=== PATIENT | female | born 1990 | race Hispanic/Latino ===

== ENCOUNTER 2017-11-28 19:56 | Day surgery (SDC) | payer OTHER ==
[2017-11-29 01:08] VITALS: BP 117/55; TEMP 98.3
--- NOTE | 2017-11-29 07:42 | PRG ---
DATE OF SERVICE: 11/28/2017 PRIMARY OB: Dr. Jorge Holt CHIEF COMPLAINT: Fall and abdominal pains. HISTORY OF PRESENT ILLNESS: The patient is a 27-year-old female with an intrauterine at 36 weeks and 2 days who presents to Labor and Delivery after experiencing a jarring fall onto her bottom. The patient reports that she slipped and fell sharply on her bottom and since then has been having a lot of abdominal and pelvic pain. The patient reports uterine contractions. She denies va ginal bleeding or leakage of fluid. She denies hitting her abdomen directly. She reports move ment. She denies any complications with this thus far. The patient denies fever, headache , chest pain, shortness of breath, nausea, vomiting, diarrhea, constipation. She denies rashes, hip problems and denies knee problems, muscle weakness, vaginal bleeding, leakage of fluid, urinary urgen cy or frequency. The patient reports pelvic pains down in her lower pelvis that are sharp and worse with movement and activity. She has difficulty turning in bed and lifting her legs, particularly the left side. PAST MEDICAL HISTORY: Negative. PAST SURGICAL HISTORY: Negative. ALLERGIES: No known drug allergies. MEDICATIONS: vitamins. SOCIAL HISTORY: Denies drug, alcohol or tobacco use. The patient continues to work outside the home and was planning on entering family medical leave next week. OBSTETRIC HISTORY: The patient has had 4 term vaginal deliveries. OB LABS: Unavailable. REVIEW OF SYSTEMS: Per HPI. PHYSICAL EXAMINATION: VITAL SIGNS: Blood pressure 128/84, heart rate of 72, respiratory rate of 16, satting 99% on room ai r, temperature 98.3. GENERAL: She appears to be in no acute distress. She is alert and oriented, cooperative and pleasan t to interact with. HEENT: Normocephalic, atraumatic. LUNGS: Clear to auscultation bilaterally. HEART: Regular rate and rhythm. ABDOMEN: Soft. It is tender to palpation particularly with deviation of the uterus to the left and right. Left is tenderness and pain is worse in the right. EXTREMITIES: Nontender, nonedematous. CERVICAL EXAM: 120 and -2 station. heart tracing performed for abdominal pain and fall. Baseline is noted to be in the 130s with moderate long-term variability, positive accelerations, no decelerations. Tocometer on first arrival , the patient was having contractions about every 2 minutes and then every 5-6 minutes. After about 5-6 hours the patient is now not having any contractions. She reports that her pain is improved, chastity t she is able to turn in bed without too much discomfort. Fetus continues to look reactive and reass uring with baseline in the 120s, moderate long-term variability, positive accelerations, no decelerat ions. ASSESSMENT AND PLAN: The patient is a 27-year-old female with an intrauterine at 36 weeks and 2 days after a fall onto her bottom. Her contractions have now dissipated and the patient is overall feeling better. Fetus is reassuring and reactive. The patient will be discharged to home and has instructions to follow up with her primary OB, Dr. Jorge Holt in the next few days. The jade hardwick has been asked to call his office today to make an appointment.
== END 2017-11-29 09:40 | disposition home or self-care (01) ==
LOC: L&D/OP 19:56 → EEVIPCON 19:56 → L&D/OP 11-29 09:40
PROVIDERS: ATTEND Family Medicine
DX: O47.03 False labor before 37 completed weeks of gestation, third trimester (principal); W18.30XA Fall on same level, unspecified, initial encounter; Z3A.36 36 weeks gestation of pregnancy
CPT/HCPCS: 76815; 99282

== ENCOUNTER 2017-12-19 05:00 | Inpatient (IN) | payer OTHER ==
[2017-12-19] MEDS: Lactated Ringer's 1,000 ML IV SCH ×3 (08:15→13:12)
[2017-12-19 08:24] VITALS: BMI 38.9
[2017-12-19] MEDS ORDERED: Diphenoxylate HCl/Atropine Tablet PO PRN (08:24)
[2017-12-19] MEDS ORDERED: Lidocaine 1% (PF) 30 ML VIAL SC PRN (08:24)
[2017-12-19] MEDS ORDERED: Misoprostol 200 MCG TAB PR PRN (08:24)
[2017-12-19] MEDS ORDERED: Methylergonovine 0.2 MG/ML VIAL IM PRN (08:24)
[2017-12-19] MEDS ORDERED: NS w/ Oxytocin 10 units 500 ML IV SCH ×2 (08:24)
[2017-12-19] MEDS ORDERED: HYDROcodone/Acetaminophen 5/325 mg Tablet PO PRN (08:24)
[2017-12-19] MEDS ORDERED: Carboprost 250 MCG/ML AMP IM PRN (08:24)
[2017-12-19] MEDS ORDERED: Ibuprofen 800 MG TAB PO PRN (08:24)
[2017-12-19] MEDS ORDERED: Ondansetron PF 4 MG/2 ML Vial IVP PRN ×3 (08:24→16:13)
[2017-12-19] MEDS ORDERED: NS / Oxytocin 40 units/1000ml 1,000 ML IV PRN (08:24)
[2017-12-19 08:50] LABS: Hemoglobin 11.6 g/dL (12.0-16.0); Mean Corpuscular HGB CONC 31.9 g/dL (32.0-36.0); Mean Corpuscular Hemoglobin 24.9 pg (27.0-31.0); Mean Corpuscular Volume 78.1 fL (78.0-98.0); Mean Platelet Volume 8.1 fL (7.4-10.4); Platelet Count 204 thou/uL (130-400); RBC Distribution Width 14.6 % (11.5-14.5); Red Blood Cell (RBC) Count 4.64 mill/uL (4.20-5.40); White Blood Cell (WBC) Count 4.5 thou/uL (4.8-10.8)
[2017-12-19 09:17] LABS: HBSAg Index 0.19 S/CO (0-0.99); Hep B Surf Ag Non-Reactive S/CO (NonReactive); Syphilis Antibody Nonreactive (Nonreactive); Syphilis Antibody Index 0.04 S/CO (<1.00 Non-Reactive)
[2017-12-19] MEDS ORDERED: Ondansetron PF 4 MG/2 ML Vial ONE ×3 (10:23→13:24)
[2017-12-19] MEDS: Butorphanol Tartrate 1 MG/ML VIAL SLOW IVP PRN ×2 (11:10→13:00)
[2017-12-19] MEDS ORDERED: Fentanyl 4 mcg/Bup 0.1% Cadd 0 ML ONE (12:26)
[2017-12-19] MEDS ORDERED: Bicitra 30 ML UDCUP ONE (12:58)
[2017-12-19] MEDS ORDERED: Morphine PF 1 MG/ML SYR ONE (13:24)
[2017-12-19] MEDS ORDERED: Oxytocin 10 UNITS/ML VIAL ONE ×2 (13:24→14:17)
[2017-12-19] MEDS ORDERED: Lidocaine 1% PF 5 ML VIAL ONE (13:27)
[2017-12-19] MEDS ORDERED: Bupivacaine 0.75% W/DEXTROSE 8.25% 2 ML AMP ONE ×2 (13:27→13:39)
[2017-12-19] MEDS ORDERED: CEFAZOLIN/Water 2 GM/20 ML SYRINGE SLOW IVP SCH (13:30)
[2017-12-19] MEDS ORDERED: Carboprost 250 MCG/ML AMP ONE (13:57)
[2017-12-19] MEDS ORDERED: Methylergonovine 0.2 MG/ML VIAL ONE (14:06)
[2017-12-19 14:08] LABS: Actual Bicarbonate (HCO3a) 24.4 mEq/L (22-28)
[2017-12-19] MEDS ORDERED: Ketorolac Tromethamine 30 MG/ML VIAL ONE (15:32)
[2017-12-19] MEDS ORDERED: Promethazine HCl 25 MG/ML VIAL IM PRN (16:02)
[2017-12-19] MEDS ORDERED: Promethazine HCl 25 MG SUPP PR PRN (16:02)
[2017-12-19] MEDS ORDERED: diphenhydrAMINE 50 MG/ML VIAL IVP PRN (16:02)
[2017-12-19] MEDS ORDERED: Naloxone HCl 0.4 mg/ml Vial IVP PRN ×2 (16:02)
[2017-12-19] MEDS ORDERED: Naloxone HCl 0.4 mg/ml Vial IV PRN (16:02)
[2017-12-19] MEDS ORDERED: Eucerin (Mineral Oil/Petrolatum,White) 30 gm Jar TOP PRN (16:02)
[2017-12-19] MEDS ORDERED: Lactated Ringer's 1,000 ML IV SCH (16:13)
[2017-12-19] MEDS ORDERED: diphenhydrAMINE 25 MG CAP PO PRN (16:13)
[2017-12-19] MEDS ORDERED: NS / Oxytocin 40 units/1000ml 1,000 ML IV SCH (16:13)
[2017-12-19] MEDS ORDERED: Communication Order-Pharmacy FS SCH (16:15)
[2017-12-19] MEDS: Ferrous Sulfate 325 MG TAB PO SCH (21:18)
[2017-12-19] MEDS: Docusate Calcium (SURFAK) 240 MG CAP PO SCH (21:18)
[2017-12-19] MEDS: Ibuprofen 800 MG TAB PO SCH (21:19)
[2017-12-20] MEDS: Ketorolac Tromethamine 30 MG/ML VIAL IVP PRN ×2 (00:23→06:13)
[2017-12-20] MEDS ORDERED: Meperidine HCl/PF 25 MG/ML VIAL IM PRN (04:15)
[2017-12-20] MEDS ORDERED: Butorphanol Tartrate 1 MG/ML VIAL SLOW IVP PRN (04:15)
[2017-12-20] MEDS ORDERED: HYDROcodone/Acetaminophen 5/325 mg Tablet PO PRN (04:15)
[2017-12-20 06:31] LABS: Hemoglobin 9.7 g/dL (12.0-16.0); Mean Corpuscular HGB CONC 32.6 g/dL (32.0-36.0); Mean Corpuscular Hemoglobin 25.7 pg (27.0-31.0); Mean Corpuscular Volume 78.7 fL (78.0-98.0); Mean Platelet Volume 7.6 fL (7.4-10.4); Platelet Count 140 thou/uL (130-400); RBC Distribution Width 14.5 % (11.5-14.5); Red Blood Cell (RBC) Count 3.77 mill/uL (4.20-5.40); White Blood Cell (WBC) Count 6.2 thou/uL (4.8-10.8)
[2017-12-20] MEDS: Ibuprofen 800 MG TAB PO SCH ×3 (06:35→21:12)
[2017-12-20] MEDS: Prenatal Vitamin 1 TAB PO SCH (09:30)
[2017-12-20] MEDS: Docusate Calcium (SURFAK) 240 MG CAP PO SCH ×2 (09:31→21:12)
[2017-12-20] MEDS: Ferrous Sulfate 325 MG TAB PO SCH ×2 (09:31→21:12)
[2017-12-20] MEDS: Simethicone Chewable 80 MG TAB PO PRN ×3 (09:34→21:12)
[2017-12-20] MEDS: HYDROcodone/Acetaminophen 5/325 mg Tablet PO PRN ×3 (11:30→21:14)
[2017-12-20] MEDS ORDERED: Lidocaine 2% MPF 10 ML AMP (For Epidural Use) ONE (15:58)
[2017-12-20] MEDS ORDERED: Bupivacaine/Epinephrine 0.25% 30 ML VIAL ONE (15:58)
[2017-12-21] MEDS: HYDROcodone/Acetaminophen 5/325 mg Tablet PO PRN ×4 (04:01→18:33)
[2017-12-21] MEDS: Ibuprofen 800 MG TAB PO SCH ×4 (06:33→22:12)
[2017-12-21] MEDS: Prenatal Vitamin 1 TAB PO SCH (08:39)
[2017-12-21] MEDS: Ferrous Sulfate 325 MG TAB PO SCH ×2 (08:39→22:13)
[2017-12-21] MEDS: Docusate Calcium (SURFAK) 240 MG CAP PO SCH ×2 (08:41→22:12)
[2017-12-22] MEDS: HYDROcodone/Acetaminophen 5/325 mg Tablet PO PRN ×3 (03:40→13:57)
[2017-12-22] MEDS: Ibuprofen 800 MG TAB PO SCH ×3 (06:24→13:57)
[2017-12-22] MEDS: Ferrous Sulfate 325 MG TAB PO SCH (08:55)
[2017-12-22] MEDS: Docusate Calcium (SURFAK) 240 MG CAP PO SCH (08:55)
[2017-12-22] MEDS: Prenatal Vitamin 1 TAB PO SCH (08:55)
[2017-12-22] MEDS: Simethicone Chewable 80 MG TAB PO PRN (08:58)
[2017-12-22 09:40] VITALS: BP 130/80; TEMP 97.6
--- NOTE | 2017-12-23 13:19 | OP ---
DATE OF SURGERY: 12/19/2017 PREOPERATIVE DIAGNOSES: 1. A 39-week . 2. Compound presentation (cephalic presentation with forearm and lower leg). POSTOPERATIVE DIAGNOSES: 1. A 39-week . 2. Compound presentation (cephalic presentation with forearm and lower leg). PROCEDURE PERFORMED: Primary low cervical transverse section. SURGEON: Jorge Holt M.D. ENGINE CLEANER: Ben Balderrama M.D. ANESTHESIA: Spinal. DESCRIPTION OF EVENTS: After informed consent was obtained from the patient, she was taken to the op erating room where spinal anesthesia was administered. She was prepped and draped in the usual steri le fashion. A Pfannenstiel incision was created with a #10 scalpel blade and carried down to the [facility]. Fascia was nicked in the midline and the incision was extended transversely with Johnston scissors. The superior fascial segment was grasped with Kochers and elevated and the underlying rectus muscle s were dissected away, first bluntly and then sharply. This was repeated with the inferior fascial s egment. The rectus muscles were divided in the midline bluntly. Peritoneum was entered bluntly. Bl adder blade was inserted. A low transverse incision was created with a clean #10 scalpel blade. Nic ar amniotic fluid was encountered. vertex was delivered onto the operative field after ensurin g no other parts for obstructing the delivery. The remainder of the infant delivered uneventfu lly and atraumatically. Cord was clamped x2 and a vigorous female infant was handed to the staff in attendance. Cord blood was obtained. The placenta was manually extracted. The uterus was exteriorized and freed of clots and debris. The uterus was repaired with a running locking suture of 0 Vicryl in a single full-thickness layer followed by a series of horizontal mattress sutures along the incision line for hemostasis which was observed. The abdomen was copiously irrigated with saline . Seprafilm was applied to the repaired uterine incision and the anterior uterine fundus. The uteru s was then returned to the abdomen. Hemostasis was again observed. The peritoneum was closed with a running suture of 3-0 Vicryl. The fascia was closed with a running suture of 0 PDS. Three interrup alex sutures of 3-0 Vicryl were placed in the subdermal layer to reapproximate the skin which was clos ed with skin [place]. Sponge and instrument counts were correct x4. She tolerated this procedure we ll and suffered no acute complications. She was taken to recovery in stable condition. The t o the nursery in stable condition. FINDINGS: Viable female infant, 6 pounds 14 ounces, Apgars 8 and 9. COMPLICATIONS: None. SPECIMENS: None. ESTIMATED BLOOD LOSS: 730 mL.
== END 2017-12-22 15:15 | disposition home or self-care (01) | DRG 788 ==
LOC: L&D 07:14 → 3SW 16:15
PROVIDERS: ADMIT Family Medicine; ATTEND Family Medicine
PROC: 3E033VJ Introduction of Other Hormone into Peripheral Vein, Percutaneous Approach (ICD-10-PCS; principal; 2017-12-19)
PROC: 10D00Z1 Extraction of Products of Conception, Low, Open Approach (ICD-10-PCS; 2017-12-19)
DX: O82 Encounter for cesarean delivery without indication (principal); Z3A.39 39 weeks gestation of pregnancy; Z37.0 Single live birth; O32.6XX0 Maternal care for compound presentation, not applicable or unspecified
CPT/HCPCS: 36415; 51702; 76815; 82805; 85027; 86780; 86850; 86900; 86901; 87340; J0595; J1885; J2001; J2210; J2274; J2405; J2590; J3490

== ENCOUNTER 2022-09-08 13:12 | Emergency (ER) | payer BC ==
[2022-09-08 13:33] LABS: #Eosinphils 0.1 thou/uL (0.0-0.7); #Monocytes 0.3 thou/uL (0.11-0.59); #Neutrophils 4.1 thou/uL (1.40-6.50); %Basophils 0.5 % (0.0-1.0); %Eosinophils 1.1 % (0.0-10.0); %Lymphocytes 25.4 % (21.0-51.0); %Monocytes 4.9 % (0.0-10.0); %Neutrophils 67.8 % (42.0-75.0); Hemoglobin 12.8 g/dL (12.0-16.0); Mean Corpuscular HGB CONC 31.1 g/dL (32.0-36.0); Mean Corpuscular Volume 80.6 fl (78.0-98.0); Mean Platelet Volume 9.6 fL (7.4-10.4); Platelet Count 260 10x3/uL (130-400); Red Blood Cell (RBC) Count 5.11 mill/uL (4.20-5.40); White Blood Cell (WBC) Count 6.1 10x3/uL (4.8-10.8)
[2022-09-08 13:56] LABS: ALT (SGPT) 12 U/L (8-55); AST (SGOT) 15 U/L (5-34); Albumin 4.3 g/dL (3.5-5.0); Alkaline Phosphatase 48 U/L (40-110); Anion Gap 14 mmol/L (10-20); BUN (Urea Nitrogen) 20 mg/dL (7.0-18.7); Bilirubin, Total 0.4 mg/dL (0.2-1.2); Calc. Creatinine Clearance 0 mL/min (70-130); Calcium 9.3 mg/dL (7.8-10.44); Carbon Dioxide 23 mmol/L (22-29); Chloride 105 mmol/L (98-107); Estimated GFR 87; Globulin 3.4 g/dL (2.4-3.5); Glucose 95 mg/dL (70-105); Lipase 53 U/L (8-78); Potassium 3.6 mmol/L (3.5-5.1); Protein, Total 7.7 g/dL (6.0-8.3); Sodium 138 mmol/L (136-145)
[2022-09-08] MEDS ORDERED: Ondansetron PF 4 MG/2 ML Vial ONE (13:58)
[2022-09-08] MEDS ORDERED: Ketorolac Tromethamine 30 MG/ML VIAL ONE ×2 (13:58→17:06)
[2022-09-08 14:07] LABS: Bilirubin Negative (Negative); Blood, Urine Negative (Negative); CAUTI Indications for Culture Pelvic or flank pain; Clarity Clear (Clear); Glucose, Urine (Dipstick) Normal (Negative); Ketone, Urine Negative (Negative); Leukocyte 25 Leu/uL (Negative); Nitrite Negative (Negative); Protein, Urine (Dipstick) 10 mg/dL (Neg-Trace); Specific Gravity, Urine 1.027 (1.002-1.036); Urobilinogen Normal mg/dL (Less than 2); WBC/HPF 0-3 HPF (0-3)
[2022-09-08 14:08] LABS: Bacteria/HPF 1+ HPF (None Seen)
[2022-09-08 14:10] LABS: Pregnancy Test - Urine (BHCG) Negative (Negative); Pregu Control Background? CLEAR/WHITE (CLR/WHITE); Pregu Control Bar Appear? YES (CONTROL BAR); Specific Gravity 1.027 (1.002-1.036); Urine Culture Reflex No No
[2022-09-08] MEDS ORDERED: Cephalexin 250 MG CAP ONE (17:06)
[2022-09-09 03:55] LABS: Chlamydia by PCR, Vaginal Swab *Indeterminate (NotDetected); GC by PCR, Vaginal Swab *Indeterminate (NotDetected)
== END 2022-09-08 16:21 | disposition home or self-care (01) ==
LOC: ERS 13:12
DX: N83.201 Unspecified ovarian cyst, right side (principal)
CPT/HCPCS: 36415; 76856; 80053; 81001; 81025; 83690; 85025; 87480; 87491; 87510; 87591; 87660; 93976; 96374; 96375; J1885; J2405